=== PATIENT | male | born 1985 | race Caucasian/White ===

== ENCOUNTER 2016-11-30 13:07 | Inpatient (IN) | payer MEDICAID, OTHER ==
[~2016-11-30] VITALS: Ht 170.2 cm; Wt 60.8 kg
[2016-11-30 13:26] LABS: BASOPHILS % (AUTO) 0.6 % (0.0-2.0); HEMOGLOBIN 14.4 g/dL (13.5-17.5); LYMPHOCYTES # (AUTO) 1.4 K/uL (1.0-4.8); LYMPHOCYTES % (AUTO) 22.3 % (22.0-44.0); MEAN CORPUSCULAR HEMOGLOBIN 28.6 pg (26.0-34.0); MEAN CORPUSCULAR HGB CONC 32.6 G/dL (31.0-37.0); MEAN CORPUSCULAR VOLUME 88 fL (80-100); MONOCYTES # (AUTO) 0.5 K/uL (0.1-1.0); MONOCYTES % (AUTO) 7.5 % (2.0-9.0); NEUTROPHILS # (AUTO) 4.3 K/uL (1.8-7.7); NEUTROPHILS % (AUTO) 68.6 % (40.0-70.0); PLATELET COUNT (AUTO) 156 K/uL (150-450); RED BLOOD CELL COUNT(AUTO) 5.02 MIL/uL (4.50-5.90); RED CELL DISTRIBUTION WIDTH 14.2 % (11.5-14.5); WHITE BLOOD COUNT (AUTO) 6.3 K/uL (4.5-11.0)
[2016-11-30 13:32] LABS: ANION GAP 2 mmol/L (8-16); CALCIUM, TOTAL 8.5 mg/dL (8.8-10.5); CARBON DIOXIDE 30 mmol/L (22-29); CHLORIDE 103 mmol/L (98-107); CREATININE 1.04 mg/dL (0.60-1.30); GLOMERULAR FILTR. RATE CALC > 60 mL/min (>60); POTASSIUM 4.5 mmol/L (3.5-5.1); SODIUM SERUM 135 mmol/L (136-145); UREA NITROGEN, BLOOD 12 mg/dL (7-18)
[2016-11-30 13:38] LABS: ALANINE AMINOTRANSFERASE 33 U/L (12-78); ALBUMIN 4.2 g/dL (3.4-5.0); ASPARTATE AMINOTRANSFERASE 19 U/L (15-37); BILIRUBIN,TOTAL 0.9 mg/dL (0.1-1.0); TOTAL PROTEIN, SERUM 6.6 g/dL (6.4-8.2)
[2016-11-30 13:51] LABS: ACETAMINOPHEN < 2 mcg/mL (10-30)
[2016-11-30] MEDS ORDERED: HALOPERIDOL 5 MG TABLET PO PRN (16:45)
[2016-11-30 20:25] VITALS: BP 123/68
[2016-12-01 00:46] VITALS: BP 115/67
[2016-12-01 08:09] LABS: CHOL/HDL RATIO 3.4 (4.2-7.3)
[2016-12-01 08:15] VITALS: BP 113/73
[2016-12-01] MEDS: PARoxetine HCL 20 MG TABLET PO SCH (09:12)
[2016-12-01] MEDS: NICOTINE 21 MG/24 HOUR PATCH TD SCH (10:03)
[2016-12-01] MEDS: LORazepam 2 MG TABLET PO PRN ×3 (13:05→22:18)
[2016-12-01 16:00] VITALS: BP 126/71
[2016-12-01] MEDS: ZOLPIDEM TARTRATE 10 MG TABLET PO PRN (21:10)
[2016-12-02 06:44] VITALS: BP 114/61
[2016-12-02 08:15] VITALS: BP 114/70
[2016-12-02] MEDS: PARoxetine HCL 20 MG TABLET PO SCH (10:12)
[2016-12-02] MEDS: NICOTINE 21 MG/24 HOUR PATCH TD SCH (10:12)
[2016-12-02 16:14] VITALS: BP 119/63
[2016-12-02] MEDS: LORazepam 2 MG TABLET PO PRN (21:03)
[2016-12-02] MEDS: ZOLPIDEM TARTRATE 10 MG TABLET PO PRN (22:18)
[2016-12-03 06:01] VITALS: BP 107/61
[2016-12-03] MEDS: NICOTINE 21 MG/24 HOUR PATCH TD SCH (08:27)
[2016-12-03] MEDS: PARoxetine HCL 20 MG TABLET PO SCH (08:27)
[2016-12-03 08:40] VITALS: BP 120/73
[2016-12-03] MEDS: DIVALPROEX SODIUM 250 MG DR TABLET PO SCH (14:45)
[2016-12-03 16:00] VITALS: BP 108/76
[2016-12-03] MEDS: LORazepam 2 MG TABLET PO PRN (20:21)
[2016-12-04 06:27] VITALS: BP 133/69
[2016-12-04 08:36] VITALS: BP 117/61
[2016-12-04] MEDS: DIVALPROEX SODIUM 250 MG DR TABLET PO SCH (08:42)
[2016-12-04] MEDS: PARoxetine HCL 20 MG TABLET PO SCH (08:42)
[2016-12-04] MEDS: NICOTINE 21 MG/24 HOUR PATCH TD SCH (08:42)
[2016-12-04] MEDS: LORazepam 2 MG TABLET PO PRN (14:46)
[2016-12-04 16:30] VITALS: BP 122/76
[2016-12-05 00:38] VITALS: BP 100/60
[2016-12-05] MEDS: DIVALPROEX SODIUM 250 MG DR TABLET PO SCH ×3 (08:15→16:35)
[2016-12-05] MEDS: NICOTINE 21 MG/24 HOUR PATCH TD SCH (08:16)
[2016-12-05] MEDS: PARoxetine HCL 20 MG TABLET PO SCH (08:16)
[2016-12-05 08:20] VITALS: BP 121/71
[2016-12-05] MEDS: ZOLPIDEM TARTRATE 10 MG TABLET PO PRN (20:19)
[2016-12-05 20:39] VITALS: BP 114/77
[2016-12-05] MEDS: LORazepam 2 MG TABLET PO PRN (21:38)
[2016-12-06 07:22] VITALS: BP 118/65
[2016-12-06 08:26] VITALS: BP 117/64
[2016-12-06] MEDS: NICOTINE 21 MG/24 HOUR PATCH TD SCH (08:44)
[2016-12-06] MEDS: DIVALPROEX SODIUM 250 MG DR TABLET PO SCH ×3 (08:44→16:30)
[2016-12-06] MEDS: PARoxetine HCL 20 MG TABLET PO SCH (08:44)
[2016-12-06 16:24] VITALS: BP 120/70
[2016-12-06] MEDS ORDERED: DIVA125T2 PO (17:21)
[2016-12-06] MEDS ORDERED: PARO40TA PO (17:21)
== END 2016-12-06 16:16 | disposition home or self-care (01) | DRG 750 ==
LOC: EMS 13:09 → EEVIPCON 13:09 → B2S 18:01 → UNDOADMIN 18:06 → B2S 18:06
PROVIDERS: ADMIT Psychiatry & Neurology Child & Adolescent Psychiatry; ATTEND Psychiatry & Neurology Child & Adolescent Psychiatry
DX: F25.0 Schizoaffective disorder, bipolar type (principal); R56.9 Unspecified convulsions; R45.851 Suicidal ideations; Z88.0 Allergy status to penicillin; Z88.1 Allergy status to other antibiotic agents; Z72.0 Tobacco use; F12.90 Cannabis use, unspecified, uncomplicated; F60.3 Borderline personality disorder
CPT/HCPCS: 93005; 99285; G0480; G0481

== ENCOUNTER 2017-05-05 21:19 | Inpatient (IN) | payer MEDICAID, OTHER ==
[~2017-05-05] VITALS: Ht 167.6 cm; Wt 54.3 kg
[~2017-05-05 21:19] MED LIST: DIVA125T2 PO; PARO40TA PO
[2017-05-05] MEDS ORDERED: BENZ2TAB10 PO (21:21)
[2017-05-05] MEDS ORDERED: ARIP5TAB8 PO (21:21)
[2017-05-05 21:56] LABS: BASOPHILS # (AUTO) 0.08 K/uL (0.00-0.20); BASOPHILS % (AUTO) 0.5 % (0.0-2.0); EOSINOPHILS # (AUTO) 0.08 K/uL (0.00-0.70); EOSINOPHILS % (AUTO) 0.54 % (1.0-6.0); HEMATOCRIT 44.4 % (41-53); HEMOGLOBIN 14.9 g/dL (13.5-17.5); LYMPHOCYTES # (AUTO) 2.7 K/uL (1.0-4.8); LYMPHOCYTES % (AUTO) 18.2 % (22.0-44.0); MEAN CORPUSCULAR HEMOGLOBIN 30.2 pg (26.0-34.0); MEAN CORPUSCULAR HGB CONC 33.7 G/dL (31.0-37.0); MEAN CORPUSCULAR VOLUME 90 fL (80-100); MONOCYTES % (AUTO) 6.8 % (2.0-9.0); NEUTROPHILS # (AUTO) 10.8 K/uL (1.8-7.7); NEUTROPHILS % (AUTO) 73.9 % (40.0-70.0); PLATELET COUNT (AUTO) 170 K/uL (150-450); RED BLOOD CELL COUNT(AUTO) 4.95 MIL/uL (4.50-5.90); RED CELL DISTRIBUTION WIDTH 13.6 % (11.5-14.5); WHITE BLOOD COUNT (AUTO) 14.6 K/uL (4.5-11.0)
[2017-05-05 22:06] LABS: ANION GAP 9 mmol/L (8-16); CALCIUM, TOTAL 9.1 mg/dL (8.8-10.5); CARBON DIOXIDE 26 mmol/L (22-29); CHLORIDE 102 mmol/L (98-107); GLOMERULAR FILTR. RATE CALC > 60 mL/min (>60); POTASSIUM 4.4 mmol/L (3.5-5.1); SODIUM SERUM 137 mmol/L (136-145); UREA NITROGEN, BLOOD 19 mg/dL (7-18)
[2017-05-05 22:12] LABS: ALANINE AMINOTRANSFERASE 45 U/L (12-78); ALBUMIN 4.6 g/dL (3.4-5.0); ASPARTATE AMINOTRANSFERASE 29 U/L (15-37); BILIRUBIN,TOTAL 0.6 mg/dL (0.1-1.0); TOTAL PROTEIN, SERUM 6.9 g/dL (6.4-8.2)
[2017-05-05 22:31] LABS: VALPROIC ACID < 3 mcg/mL (50-100)
[2017-05-05] MEDS ORDERED: OLANZapine 5 MG RAPDIS TABLET PO PRN (23:45)
[2017-05-05] MEDS ORDERED: ZOLPIDEM TARTRATE 10 MG TABLET PO PRN (23:45)
[2017-05-05] MEDS ORDERED: LORazepam 2 MG TABLET PO PRN (23:45)
[2017-05-06] MEDS ORDERED: INFLUENZA VIRUS VACCINE QVS 2017-18 (3YR+)/PF 60 MCG/0.5 ML SYRINGE IM ONE (01:15)
[2017-05-06 01:17] VITALS: BP 132/73
[2017-05-06 08:26] VITALS: BP 108/60
[2017-05-06 09:15] LABS: CHOL/HDL RATIO 2.5 (4.2-7.3)
[2017-05-06] MEDS ORDERED: DIVALPROEX SODIUM 250 MG DR TABLET PO SCH (10:00)
[2017-05-06] MEDS ORDERED: ACETAMINOPHEN 325 MG TABLET PO PRN ×2 (13:00→15:00)
[2017-05-06] MEDS ORDERED: MAGNESIUM HYDROXIDE SUSPENSION 30 ML UDCUP PO PRN (13:00)
[2017-05-06] MEDS ORDERED: LOPERAMIDE HCL 2 MG CAPSULE PO PRN (13:00)
[2017-05-06] MEDS ORDERED: MAG HYDROX/AL HYDROX/SIMETH ES 30 ML SUSPENSION UDCUP PO PRN (13:00)
[2017-05-06] MEDS ORDERED: PROMETHAZINE HCL 25 MG TABLET PO PRN (13:00)
[2017-05-06] MEDS ORDERED: GuaiFENesin/D-METHORPHAN [SUGAR-FREE] 200-20MG/10 ML SYRUP UDCUP PO PRN (13:00)
[2017-05-06] MEDS ORDERED: TUBERCULIN, PURIFIED PROTEIN DERIVATIVE 5 TU/0.1 ML SYG ID ONE (13:00)
[2017-05-06] MEDS ORDERED: HydrOXYzine PAMOATE 50 MG CAPSULE PO PRN (13:00)
[2017-05-06] MEDS ORDERED: DIVA250T25 PO (13:12)
[2017-05-06] MEDS ORDERED: PARO20TA24 PO (13:12)
[2017-05-06] MEDS ORDERED: IBUPROFEN 400 MG TABLET PO PRN (15:00)
[2017-05-06 16:06] VITALS: BP 141/63
[2017-05-06] MEDS: THIAMINE HCL 100 MG TABLET PO SCH (17:12)
[2017-05-06] MEDS: OLANZapine 10 MG RAPDIS TABLET PO SCH (20:21)
[2017-05-06] MEDS ORDERED: DIVALPROEX SODIUM 500 MG DR TABLET PO SCH (21:00)
[2017-05-07 03:04] VITALS: BP 103/76
[2017-05-07 08:09] VITALS: BP 110/61
[2017-05-07] MEDS ORDERED: ARIPiprazole 15 MG TABLET PO SCH (09:00)
[2017-05-07] MEDS: FLUoxetine HCL 20 MG CAPSULE PO SCH (09:18)
[2017-05-07] MEDS: MULTIVITAMINS WITH MINERALS, THERAPEUTIC TABLET PO SCH (09:18)
[2017-05-07] MEDS: NALTREXONE HCL 50 MG TABLET PO SCH (09:18)
[2017-05-07] MEDS: FOLIC ACID 1 MG TABLET PO SCH (09:18)
[2017-05-07] MEDS: THIAMINE HCL 100 MG TABLET PO SCH ×2 (09:18→16:12)
[2017-05-07 16:35] VITALS: BP 119/72
[2017-05-07] MEDS: OLANZapine 10 MG RAPDIS TABLET PO SCH (20:25)
[2017-05-07] MEDS ORDERED: DIVALPROEX SODIUM 250 MG DR TABLET PO SCH (21:00)
[2017-05-08 00:05] VITALS: BP 102/63
[2017-05-08 08:02] VITALS: BP 109/62
[2017-05-08] MEDS: FOLIC ACID 1 MG TABLET PO SCH (08:12)
[2017-05-08] MEDS: MULTIVITAMINS WITH MINERALS, THERAPEUTIC TABLET PO SCH (08:12)
[2017-05-08] MEDS: FLUoxetine HCL 20 MG CAPSULE PO SCH (08:12)
[2017-05-08] MEDS: THIAMINE HCL 100 MG TABLET PO SCH (08:12)
[2017-05-08] MEDS: NALTREXONE HCL 50 MG TABLET PO SCH (08:12)
[2017-05-08] MEDS ORDERED: DIVA250T4 PO (09:55)
[2017-05-08] MEDS ORDERED: NALT50TA PO (11:34)
== END 2017-05-08 13:25 | disposition left against medical advice (07) | DRG 750 ==
LOC: EMS 21:20 → B2S 23:03
PROVIDERS: ADMIT Psychiatry & Neurology Psychiatry; ATTEND Psychiatry & Neurology Psychiatry
DX: F25.0 Schizoaffective disorder, bipolar type (principal); R45.851 Suicidal ideations; G40.909 Epilepsy, unspecified, not intractable, without status epilepticus; F41.9 Anxiety disorder, unspecified; D72.829 Elevated white blood cell count, unspecified; F12.90 Cannabis use, unspecified, uncomplicated; F19.10 Other psychoactive substance abuse, uncomplicated; Z53.21 Procedure and treatment not carried out due to patient leaving prior to being seen by health care provider; Z91.19 Patient's noncompliance with other medical treatment and regimen; Z28.21 Immunization not carried out because of patient refusal; Z88.0 Allergy status to penicillin; Z88.1 Allergy status to other antibiotic agents; Z80.9 Family history of malignant neoplasm, unspecified; Z83.3 Family history of diabetes mellitus; Z71.51 Drug abuse counseling and surveillance of drug abuser; Z59.0 Homelessness
CPT/HCPCS: 99285; G0480

== ENCOUNTER 2017-08-26 03:02 | Inpatient (IN) | payer MEDICAID, OTHER ==
[~2017-08-26] VITALS: Ht 167.6 cm; Wt 58.4 kg
[~2017-08-26 03:02] MED LIST changes: -DIVA125T2 PO; +DIVA250T4 PO; +NALT50TA PO; -PARO40TA PO
[2017-08-26 03:34] LABS: BASOPHILS % (AUTO) 0.5 % (0.0-2.0); EOSINOPHILS % (AUTO) 2.5 % (1.0-6.0); HEMATOCRIT 46.1 % (41-53); HEMOGLOBIN 15.6 g/dL (13.5-17.5); LYMPHOCYTES # (AUTO) 3.3 K/uL (1.0-4.8); LYMPHOCYTES % (AUTO) 30.9 % (22.0-44.0); MEAN CORPUSCULAR HEMOGLOBIN 30.1 pg (26.0-34.0); MEAN CORPUSCULAR HGB CONC 33.9 G/dL (31.0-37.0); MEAN CORPUSCULAR VOLUME 89 fL (80-100); MONOCYTES # (AUTO) 0.9 K/uL (0.1-1.0); MONOCYTES % (AUTO) 8.7 % (2.0-9.0); NEUTROPHILS # (AUTO) 6.1 K/uL (1.8-7.7); NEUTROPHILS % (AUTO) 57.4 % (40.0-70.0); PLATELET COUNT (AUTO) 226 K/uL (150-450); RED BLOOD CELL COUNT(AUTO) 5.19 MIL/uL (4.50-5.90); RED CELL DISTRIBUTION WIDTH 13.4 % (11.5-14.5)
[2017-08-26 03:41] LABS: ANION GAP 10 mmol/L (8-16); CALCIUM, TOTAL 8.9 mg/dL (8.8-10.5); CARBON DIOXIDE 30 mmol/L (22-29); CHLORIDE 104 mmol/L (98-107); CREATININE 0.85 mg/dL (0.60-1.30); GLOMERULAR FILTR. RATE CALC > 60 mL/min (>60); GLUCOSE,RANDOM 106 mg/dL (70-110); POTASSIUM 3.7 mmol/L (3.5-5.1); SODIUM SERUM 144 mmol/L (136-145); UREA NITROGEN, BLOOD 19 mg/dL (7-18)
[2017-08-26 03:47] LABS: ALANINE AMINOTRANSFERASE 28 U/L (12-78); ALBUMIN 4.2 g/dL (3.4-5.0); ALKALINE PHOSPHATASE 73 U/L (46-116); ASPARTATE AMINOTRANSFERASE 20 U/L (15-37); BILIRUBIN,TOTAL 0.6 mg/dL (0.1-1.0); TOTAL PROTEIN, SERUM 6.9 g/dL (6.4-8.2)
[2017-08-26] MEDS ORDERED: HALOPERIDOL 5 MG TABLET PO PRN (04:00)
[2017-08-26 04:03] LABS: VALPROIC ACID < 3 mcg/mL (50-100)
[2017-08-26 04:36] LABS: AMPHET/METH SCREEN,URINE NEGATIVE (NEGATIVE); BARBITURATE SCREEN, URINE NEGATIVE (NEGATIVE); BENZODIAZEPINES SCREEN,URINE NEGATIVE (NEGATIVE); CANNABINOID SCREEN,URINE POSITIVE (NEGATIVE); COCAINE SCREEN,URINE NEGATIVE (NEGATIVE); METHADONE SCREEN, URINE NEGATIVE (NEGATIVE); OPIATE SCREEN,URINE NEGATIVE (NEGATIVE)
[2017-08-26 04:41] LABS: PHENCYCLIDINE SCREEN,URINE NEGATIVE (NEGATIVE)
[2017-08-26 05:33] VITALS: BP 118/65
[2017-08-26 08:07] VITALS: BP 113/66
[2017-08-26] MEDS: NICOTINE 21 MG/24 HOUR PATCH TD SCH (08:46)
[2017-08-26] MEDS ORDERED: INFLUENZA VIRUS VACCINE QVS 2017-18 (3YR+)/PF 60 MCG/0.5 ML SYRINGE IM ONE (11:00)
[2017-08-26] MEDS: ESCITALOPRAM OXALATE 10 MG TABLET PO SCH (14:51)
[2017-08-26 16:21] VITALS: BP 120/77
[2017-08-26] MEDS: LevETIRAcetam 500 MG TABLET PO SCH (16:54)
[2017-08-26] MEDS: LORazepam 2 MG TABLET PO PRN (17:59)
[2017-08-26] MEDS ORDERED: ACETAMINOPHEN 325 MG TABLET PO PRN (20:15)
[2017-08-26] MEDS ORDERED: IBUPROFEN 400 MG TABLET PO PRN (20:15)
[2017-08-26] MEDS: ZOLPIDEM TARTRATE 10 MG TABLET PO PRN (20:53)
[2017-08-27] MEDS: ESCITALOPRAM OXALATE 10 MG TABLET PO SCH (07:59)
[2017-08-27] MEDS: LORazepam 2 MG TABLET PO PRN ×2 (07:59→16:26)
[2017-08-27] MEDS: NICOTINE 21 MG/24 HOUR PATCH TD SCH (08:00)
[2017-08-27] MEDS: LevETIRAcetam 500 MG TABLET PO SCH ×2 (08:23→16:24)
[2017-08-27] MEDS: ZOLPIDEM TARTRATE 10 MG TABLET PO PRN (20:30)
[2017-08-27] MEDS ORDERED: HALOPERIDOL LACTATE 5 MG/ML VIAL ONE (20:56)
[2017-08-27] MEDS ORDERED: LORazepam 2 MG/ML VIAL ONE (20:56)
[2017-08-27] MEDS ORDERED: DiphenhydrAMINE HCL 50 MG/ML VIAL ONE (20:56)
[2017-08-27] MEDS ORDERED: HALOPERIDOL LACTATE 5 MG/ML VIAL IM ONE (21:15)
[2017-08-27] MEDS ORDERED: DiphenhydrAMINE HCL 50 MG/ML VIAL IM ONE (21:15)
[2017-08-27] MEDS ORDERED: LORazepam 2 MG/ML VIAL IM ONE (21:15)
[2017-08-27 21:38] VITALS: BP 102/60
[2017-08-28] MEDS: NICOTINE 21 MG/24 HOUR PATCH TD SCH (09:21)
[2017-08-28] MEDS: ESCITALOPRAM OXALATE 10 MG TABLET PO SCH (09:21)
[2017-08-28] MEDS: LORazepam 2 MG TABLET PO PRN ×2 (09:21→16:43)
[2017-08-28] MEDS: LevETIRAcetam 500 MG TABLET PO SCH ×2 (09:21→16:43)
[2017-08-28 12:37] VITALS: BP 117/60
[2017-08-28 16:00] VITALS: BP 110/70
[2017-08-29 05:43] VITALS: BP 131/71
[2017-08-29 08:00] VITALS: BP 114/67
[2017-08-29] MEDS: ESCITALOPRAM OXALATE 10 MG TABLET PO SCH (08:57)
[2017-08-29] MEDS: NICOTINE 21 MG/24 HOUR PATCH TD SCH (08:57)
[2017-08-29] MEDS: LevETIRAcetam 500 MG TABLET PO SCH (08:57)
[2017-08-29] MEDS ORDERED: ESCI10TA PO (10:16)
[2017-08-29] MEDS ORDERED: LEVE500T53 PO (10:24)
== END 2017-08-29 13:55 | disposition home or self-care (01) | DRG 751 ==
LOC: EMS 03:02 → B2S 03:30
PROVIDERS: ADMIT Psychiatry & Neurology Child & Adolescent Psychiatry; ATTEND Psychiatry & Neurology Child & Adolescent Psychiatry
DX: F33.2 Major depressive disorder, recurrent severe without psychotic features (principal); R45.851 Suicidal ideations; F20.9 Schizophrenia, unspecified; G40.909 Epilepsy, unspecified, not intractable, without status epilepticus; F41.9 Anxiety disorder, unspecified; F12.90 Cannabis use, unspecified, uncomplicated; F19.10 Other psychoactive substance abuse, uncomplicated; F17.200 Nicotine dependence, unspecified, uncomplicated; E73.9 Lactose intolerance, unspecified; Z59.0 Homelessness; Z88.1 Allergy status to other antibiotic agents; Z88.0 Allergy status to penicillin; Z88.8 Allergy status to other drugs, medicaments and biological substances; Z83.3 Family history of diabetes mellitus
CPT/HCPCS: 99285; G0480; J1200; J1630; J2060